=== PATIENT | male | born 1995 | race Two or more races ===

== ENCOUNTER 2024-09-10 01:44 | Emergency (ER) | payer OTHER ==
[~2024-09-10] VITALS: Ht 165.1 cm; Wt 79.4 kg
[2024-09-10] MEDS ORDERED: ORPHENADRINE CITRATE 30 MG/ML AMPUL IM STA (03:36)
[2024-09-10] MEDS ORDERED: KETOROLAC TROMETHAMINE 60 MG VIAL IM STA (03:37)
[2024-09-10] MEDS ORDERED: ORPHENADRINE CITRATE 30 MG/ML AMPUL ONE (03:48)
[2024-09-10] MEDS ORDERED: KETOROLAC TROMETHAMINE 60 MG VIAL IM ONE (03:48)
[2024-09-10] MEDS ORDERED: NORFLEX100MG PO (03:59)
[2024-09-10] MEDS ORDERED: KETO10TA2 PO (03:59)
== END 2024-09-10 04:18 ==
LOC: ER 01:47
DX: M62.838 Other muscle spasm (principal)

== ENCOUNTER 2024-09-13 20:33 | Emergency (ER) | payer OTHER ==
[~2024-09-13] VITALS: Ht 165.1 cm; Wt 74.8 kg
[~2024-09-13 20:33] MED LIST: KETO10TA2 PO; NORFLEX100MG PO
[2024-09-13] MEDS ORDERED: KETOROLAC TROMETHAMINE 30 MG VIAL IM STA (22:19)
[2024-09-13] MEDS ORDERED: CEFTRIAXONE SODIUM 1,000 MG VIAL IM STA (22:21)
[2024-09-13] MEDS ORDERED: FAMOTIDINE/PF 20 MG/2 ML VIAL IV PUSH STA (22:23)
[2024-09-13] MEDS ORDERED: FAMOTIDINE/PF 20 MG/2 ML VIAL ONE (22:30)
[2024-09-13] MEDS ORDERED: CEFTRIAXONE SODIUM 1,000 MG VIAL ONE (22:30)
[2024-09-13] MEDS ORDERED: KETOROLAC TROMETHAMINE 30 MG VIAL ONE (22:30)
[2024-09-14] MEDS ORDERED: EPINEPHRINE HCL/PF 1 MG/ML AMPUL SUBCUTANEO STA (00:17)
[2024-09-14] MEDS ORDERED: DIPHENHYDRAMINE HCL 50 MG/ML VIAL 1ML IV STA (00:17)
[2024-09-14] MEDS ORDERED: FAMOTIDINE/PF 20 MG/2 ML VIAL IV PUSH STA (00:17)
[2024-09-14] MEDS ORDERED: METHYLPREDNISOLONE SOD SUCC 125 MG VIAL IV STA (00:17)
[2024-09-14 00:26] LABS: ABG PH 7.411 (7.35-7.45); ABG PO2 85.7 mmHg (80-100); ABG pCO2 37.7 mmHg (35-45); BASE EXCESS -0.8 mmol/l; BICARBONATE 23.4 mmol/l (23-25); SaO2 96.5 %; Tco2 24.6 mmol/l
[2024-09-14 01:44] LABS: allen test SATISFACTORY; o2 21 %; puncture site RADIAL RIGHT
[2024-09-14] MEDS ORDERED: MEDROL8 MG PO (02:27)
[2024-09-14] MEDS ORDERED: DOLOGESIC-DF 51 EACH PO (02:27)
[2024-09-14] MEDS ORDERED: BENADRYL25 MG PO (02:27)
== END 2024-09-13 22:58 | disposition home or self-care (01) ==
LOC: ER 20:36
PROVIDERS: General Practice
DX: M62.838 Other muscle spasm (principal); K08.89 Other specified disorders of teeth and supporting structures; R06.02 Shortness of breath

== ENCOUNTER 2025-07-12 23:37 | Emergency (ER) | payer OTHER ==
[~2025-07-12] VITALS: Ht 170.2 cm; Wt 76.2 kg
[~2025-07-12 23:37] MED LIST changes: +BENADRYL25 MG PO; +DOLOGESIC-DF 51 EACH PO; +MEDROL8 MG PO
[2025-07-12 23:54] VITALS: BP 112/71; O2SAT 100
[2025-07-12] MEDS ORDERED: AMOX1TAB5 PO (23:54)
[2025-07-13] MEDS ORDERED: METHYLPREDNISOLONE SOD SUCC 125 MG VIAL IV ONE (00:15)
[2025-07-13] MEDS ORDERED: DIPHENHYDRAMINE HCL 50 MG/ML VIAL 1ML IV ONE (00:15)
[2025-07-13] MEDS ORDERED: DIPHENHYDRAMINE HCL 50 MG/ML VIAL 1ML ONE (01:03)
[2025-07-13] MEDS ORDERED: METHYLPREDNISOLONE SOD SUCC 125 MG VIAL ONE (01:04)
[2025-07-13] MEDS ORDERED: WATER FOR INJ.,BACTERIOSTATIC 30 ML VIAL IJ ONE (01:05)
[2025-07-13 01:38] LABS: BASO % 0.3 % (0.1-1.2); EOS # 0.12 (0.04-0.54); EOS % 1.2 % (0.7-7.0); LYMPH # 3.18 (1.18-3.74); LYMPH % 31.5 % (19.3-53.1); MEAN PLATELET VOLUME 9.90 fl (9.4-12.4); MONO # 0.62 (0.24-0.82); MONO % 6.1 % (4.7-12.5); NEUT # 6.11 (1.56-6.13); NEUT % 60.6 % (34.0-71.1); RED CELL DISTRIBUTION WIDTH 12.2 % (11.6-14.4)
[2025-07-13 02:09] LABS: COVID-19 AG NEGATIVE (NEGATIVE)
[2025-07-13] MEDS ORDERED: BENADRYL ALLERG25 MG PO (02:27)
[2025-07-13] MEDS ORDERED: MEDROLPACK PO (02:27)
== END 2025-07-13 03:32 | disposition home or self-care (01) ==
LOC: ER 23:38
PROVIDERS: General Practice
DX: L27.0 Generalized skin eruption due to drugs and medicaments taken internally (principal); T36.8X5A Adverse effect of other systemic antibiotics, initial encounter; Y92.89 Other specified places as the place of occurrence of the external cause; Z88.8 Allergy status to other drugs, medicaments and biological substances; Z87.09 Personal history of other diseases of the respiratory system; Z20.822 Contact with and (suspected) exposure to COVID-19